=== PATIENT | female | born 1950 | race Caucasian/White ===

== ENCOUNTER 2018-12-16 04:55 | Inpatient (IN) ==
--- NOTE | 2018-10-31 16:09 | PAT Medication Instructions ---
Medication Instructions Date of Service October 31, 2018 Home Medications atorvastatin 40 mg PO QAM diphenhydramine HCl [Allergy] 25 mg PO DAILY PRN gabapentin 300 mg PO TID lisinopril 20 mg PO HS lisinopril-hydrochlorothiazide 1 tab PO QAM methocarbamol 500 mg PO BID PRN metoprolol succinate 100 mg PO QAM metoprolol succinate [Toprol XL] 50 mg PO HS omeprazole 20 mg PO QAM rivaroxaban [Xarelto] 20 mg PO PM [Vision Formula (X-Y-X-Zn-damon)] 1 cap PO DAILY ASK your prescriber and surgeon rivaroxaban [Xarelto] 20 mg PO PM *MUST BE HELD FOR AT LEAST 72 HOURS BEFORE SURGERY FOR SPINAL ANESTHESIA. DO NOT take the morning of surgery diphenhydramine HCl [Allergy] 25 mg PO DAILY PRN lisinopril-hydrochlorothiazide 1 tab PO QAM methocarbamol 500 mg PO BID PRN [Vision Formula (J-I-V-Zn-damon)] 1 cap PO DAILY Take morning of surgery With a small sip of water, OTHERWISE NOTHING TO EAT OR DRINK AFTER MIDNIGHT: atorvastatin 40 mg PO QAM gabapentin 300 mg PO TID metoprolol succinate 100 mg PO QAM omeprazole 20 mg PO QAM Take evening before surgery diphenhydramine HCl [Allergy] 25 mg PO DAILY PRN (if needed) gabapentin 300 mg PO TID lisinopril 20 mg PO HS methocarbamol 500 mg PO BID PRN (if needed) metoprolol succinate [Toprol XL] 50 mg PO HS Other Notes If you have any questions please call us at [phone] or [phone] or [phone] or [phone]
--- NOTE | 2018-11-03 10:24 | Anesthesiology Consultation ---
Date of Service November 03, 2018 Assessment & Plan (1) Encounter for pre-operative examination: CHECK PT/INR/PTT STAT AM DOS CHECK BSG AM DOS Chart Review Chart Review: Acceptable Risk for Surgery and Patient seen in Pre Admission Te sting Teaching & Discussion Instructed NPO after midnight before surgery, except medications with 15 cc of water. Medication instructions provided according to the PAT guidelines. Patient aware Xarelto must be held for a minimum of 72 hours prior to surgery for spinal anesthesia, and she will check with surgeon and prescriber for instructions. History Surgery Operation Date: 12/16/18 07:00 Proposed Procedures p Left Knee Arthroplasty Uni Compartment versus Total Knee Replacement - Chadd Manzo MD Height/Weight Height: 5 ft 3.75 in Weight: 101.1 kg Allergies Allergy/AdvReac Type Severity Reaction Status Date / Time cat dander Allergy Mild CONGESTION Verified 10/31/18 10:50 pollen extracts Allergy Mild WATERY EYES Verified 10/31/18 10:50 Medications Home Medications Medication Instructions Recorded Confirmed Last Taken atorvastatin 40 mg PO QAM 10/31/18 10/31/18 Unknown diphenhydramine HCl [Allergy] 25 mg PO DAILY PRN 10/31/18 10/31/18 Unknown gabapentin 300 mg PO TID 10/31/18 10/31/18 Unknown lisinopril 20 mg PO HS 10/31/18 10/31/18 Unknown lisinopril-hydrochlorothiazide 1 tab PO QAM 10/31/18 10/31/18 Unknown methocarbamol 500 mg PO BID PRN 10/31/18 10/31/18 Unknown metoprolol succinate 100 mg PO QAM 10/31/18 10/31/18 Unknown metoprolol succinate [Toprol XL] 50 mg PO HS 10/31/18 10/31/18 Unknown omeprazole 20 mg PO QAM 10/31/18 10/31/18 Unknown rivaroxaban [Xarelto] 20 mg PO PM 10/31/18 10/31/18 Unknown vitamins A,C,U-zwvu-foifrn 1 cap PO DAILY 10/31/18 10/31/18 Unknown [Vision Formula (T-I-I-Zn-damon)] Past Medical History Medical History Atrial fibrillation TAKES XARELTO Degenerative disc disease GERD (gastroesophageal reflux disease) Hyperlipidemia Hypertension Osteoarthritis Peripheral neuropathy Type 2 diabetes mellitus A1C 7.2% Past Family History Family History Mother Family history of diabetes mellitus Family hx of colon cancer Father Family hx of colon cancer Past Surgical History Surgical History History of adenoidectomy History of bilateral tubal ligation History of cataract surgery RT/LEFT History of colonoscopy History of discectomy LUMBAR (2 TOTAL BACK SURGERIES) History of esophagogastroduodenoscopy (EGD) History of open reduction and internal fixation (ORIF) procedure RT ANKLE History of tonsillectomy History of tooth extraction Past Anesthesia History No Hx of Anesthesia Complications and No Family Hx of Anesthesia Complications History of PONV No Motion Sickness Screening History of Motion Sickness: No Social History Smoking Status: Former smoker tobacco type: cigarettes Do You Dip or Chew Tobacco: No Smoking End Date: QUIT OVER 40 YEARS AGO Hx Alcohol Use: Yes Alcohol type: beer, wine and hard liquor alcohol intake frequency: a few times a month Hx Substance Use: No substance use type: does not use Exercise / Class Metabolic Activity II 4-5 Yardwork/Stairs/Walk up hill (denies CP or SOB with stairs) Review of Systems Pt denies any recent chest pain, shortness of breath, palpitations, cough, fever or URI. Physical Exam Vital Signs BP: 103/67 P: 64bpm SPO2: 95% RA T: 98.2 F R: 16 ENMT Mouth: + dental restorations (few crowns); no chipped teeth and no loose teeth Thyromental Distance: > or= 3.5 Finger Breadths (4) Mallampati Class: IV Neck + thick neck and + limited neck extension (mildly) Respiratory normal respiratory effort Auscultation: lungs clear to auscultation bilaterally Cardiovascular Rate/Rhythm: regular rate and regular rhythm Heart Sounds: no murmur Vessels: no carotid bruit Extremities: no edema Testing Electrocardiogram Date: 07/14/18 Findings: + NSR @ (77) Left axis deviation. Chest X-Ray Date: 07/14/18 Findings: + NAD Echocardiogram Date: 08/25/15 EF: 64% Examination is adequate to evaluate the referral indication. The LV wall thickness is borderline increased (concentric). Nondilated cardiac chambers. Mild mitral annular calcification. Mild MR. Mild TR. Estimated pulmonary artery systolic pressure is 16 mmHg. Laboratory Results 11/03/18 10:40 11/03/18 10:40 Blood Type A Positive 11/03/18 10:40 Antibody Screen NEGATIVE 11/03/18 10:40 PT 12.1 Seconds (9.0-12.0) H 11/03/18 10:40 INR 1.2 (0.9-1.1) H 11/03/18 10:40 APTT 33.0 Seconds (21.0-31.0) H 11/03/18 10:40
[2018-11-03 11:26] LABS: Basophils # (auto) 0.03 K/uL (0-0.2); Basophils % (auto) 0.4 %; Eosinophils # (auto) 0.12 K/uL (0-0.5); Eosinophils % (auto) 1.7 %; Hematocrit (blood only) 38.5 % (37-47); Immature Granulocytes # (auto) 0.01 K/uL (0.00-0.02); Immature Granulocytes % (auto) 0.1 %; Lymphocytes # (auto) 2.41 K/uL (1.2-3.4); Lymphocytes % (auto) 34.4 %; Mean Corpuscular Hgb Conc 33.8 g/dL (32-36); Mean Corpuscular Volume 91.7 fL (80-100); Mean Platelet Volume 9.5 fL (7.4-10.4); Monocytes # (auto) 0.77 K/uL (0.11-0.59); Neutrophils # (auto) 3.67 K/uL (1.4-6.5); Neutrophils % (auto) 52.4 %; Platelet Count 343 K/uL (130-400); RDW Coefficient of Variation 15.2 % (11.5-14.5); RDW Standard Deviation 51.1 fL (36.4-46.3); White Blood Count 7.01 K/uL (4.8-10.8)
[2018-11-03 11:36] LABS: BUN Creatinine Ratio 17.1 (10-20); Calcium 9.4 mg/dl (8.5-10.1); Creatinine Clr Calc Pharmacy 78.3 ml/min; Est GFR (African American) 90.7; Est GFR (Non-African American) 78.2; Potassium 4.1 mmol/L (3.5-5.1)
[2018-11-03 11:45] LABS: INR 1.2 (0.9-1.1); Partial Thromboplastin Ratio 1.2; Prothrombin Time 12.1 Seconds (9.0-12.0)
--- NOTE | 2018-12-12 07:28 | History and Physical Report ---
DATE OF ADMISSION: 12/16/2018 CHIEF COMPLAINT: Bilateral knee pain and discomfort, left side greater than right. HISTORY OF PRESENT ILLNESS: The patient is a 68-year-old female referred by my partner Dr. Gonzalez for treatment of her knees. She has got a fair long history of bilateral knee pain and discomfort, left side has been a bit worse than the right. It is localized mostly all of the medial side of her knee. She has been through extensive conservative treatment including medicines as well as injections. This has become less successful over time. She has some trips coming and she is concerned about her ability to walk enough. The more she walks, the more it hurts. She limps more as the day goes on. Has difficulty going up and down steps. She would like to proceed with surgical treatment. Of note, the patient recently had some back surgery done at [facility] little over 6 months ago. She has recovered from this. PAST MEDICAL HISTORY: Significant for 1. Atrial fibrillation, on Xarelto. 2. Diabetes with A1c of 7.3. 3. Arthritis. 4. Back pain. 5. Obesity with BMI of 39. PAST SURGICAL HISTORY: 1. Back surgery x2, one in 2009 and one in March 2018 at [facility]. 2. Ankle surgery in 1987. 3. Tubal ligation. ALLERGIES: CAT, DEN AND POLLEN. CURRENT MEDICINES: 1. Xarelto 20 mg a day for atrial fibrillation. 2. Lisinopril/hydrochlorothiazide - once a day. 3. Metoprolol ER 100 mg. 4. Atorvastatin 80 mg. 5. Hydrocodone for back and leg pain. 6. Gabapentin 300 mg 3 times a day. 7. Sertraline 25 mg. 8. Trazodone 25 mg. 9. Loratadine 10 mg a day. SOCIAL HISTORY: A 68-year-old female. She is . Only drinks per week. Does not smoke. FAMILY HISTORY: Significant for heart disease and colon cancer. REVIEW OF SYSTEMS: Significant for some intermittent atrial fibrillation and on Xarelto. Denies any chest pain or shortness of breath. No history of DVT. No known bleeding problems. PHYSICAL EXAMINATION: GENERAL: Reveals a pleasant middle-aged female, looks to be in reasonably good health. HEENT: Benign. NECK: Supple. No lymphadenopathy. LUNGS: Clear to auscultation. HEART: Has a regular rate and rhythm. ABDOMEN: Soft, nontender, nondistended. EXTREMITIES: Grossly neurovascularly intact except as follows: Examination of the knees reveal patient ambulates with little bit of a waddling gait. She has got varus alignment to both of her knees. Examination of left knee reveals some tenderness along the medial joint line. Small knee effusion. Range of motion is near full extension to 125 degrees of flexion. No instability. No pain with hip motion. She is neurologically intact. Examination of the right knee reveals slight varus alignment. Tender over the medial joint line. Small knee effusion. Range of motion 0-125. No instability. She is neurovascularly intact. X-RAYS: X-rays of the left knee reviewed. Shows advanced medial compartment arthritis. She has got near complete loss of joint space in the 45-degree flexion films. We did get a stress film in the medial side opens up, the lateral space is well preserved. ASSESSMENT: A 68-year-old female with a history of increasing bilateral knee pain, discomfort, primarily is isolated at the medial compartment of the knee unresponsive to conservative treatment. Left knee is worse than the right. She would like to proceed with definitive treatment. We talked about partial versus full knee replacement. After extensive discussion, we are going to take her to the operating room and do a left partial knee replacement. If we get in there and disease is too bad, we will do a full knee replacement. The risks and benefits of this procedure was explained to the patient including but not limited to DVT, PE, , infection, neurological injury, vascular injury, bleeding problem, pain, limited range of motion, stiffness, failure to relieve symptoms, incomplete relief of symptoms, need for further surgery in the future, fracture, leg length inequality, nerve palsy, dislocation, etc. The patient understands and desires to proceed. Informed consent was obtained. She will need to stop her Xarelto preop. We will start her 24 hours postoperative prophylactic dose. She does not have chronic AFib, which is closing and out and her EKG preoperatively was normal sinus rhythm. We did talk about holding her lisinopril on the day of surgery and taking the metoprolol. BLAINE
[2018-12-16 05:42] LABS: Partial Thromboplastin Time 25.9 Seconds (21.0-31.0); Prothrombin Time 10.3 Seconds (9.0-12.0)
[2018-12-16] MEDS ORDERED: LR 500ML BOLUS, THEN 15ML/HR IV SCH (06:00)
[2018-12-16] MEDS ORDERED: CEFAZOLIN 2000MG 2,000 MG/15 ML SYR IV SCH (06:00)
[2018-12-16] MEDS ORDERED: BUPIVACAINE LIPOSOME/PF 266 MG, BUPIVACAINE/EPINEPHRINE 50 ML, SODIUM CHLORIDE 0.9% 30 ... INFIL SCH (06:00)
[2018-12-16] MEDS ORDERED: METOCLOPRAMIDE HCL 10 MG TABLET PO SCH (06:00)
[2018-12-16] MEDS ORDERED: GABAPENTIN 300 MG PO SCH (06:00)
[2018-12-16] MEDS ORDERED: LR 60ML/HR IV SCH (06:00)
[2018-12-16] MEDS ORDERED: ACETAMINOPHEN 500 MG TAB PO SCH (06:00)
[2018-12-16] MEDS ORDERED: FAMOTIDINE 20 MG TAB PO SCH (06:00)
[2018-12-16] MEDS ORDERED: MIDAZOLAM HCL 1 MG/ML 2ML VIAL ONE (06:22)
[2018-12-16] MEDS ORDERED: fentaNYL citrate 100 MCG/2 ML VIAL ONE (06:23)
[2018-12-16] MEDS ORDERED: ROPIVACAINE 0.5% 5 MG/ML 30 ML VIAL ONE (06:25)
[2018-12-16] MEDS ORDERED: BUPIVACAINE 0.5 % 5 MG/1 ML PF 10ML VIAL ONE (06:25)
[2018-12-16] MEDS ORDERED: LIDOCAINE HCL 2% 2 ML VIAL/AMP(20MG/ML) INFIL ONE ×2 (06:30→07:10)
[2018-12-16] MEDS ORDERED: PROPOFOL IV EMULSION 10 MG/ML 20 ML VIAL IV ONE (06:30)
[2018-12-16] MEDS ORDERED: ONDANSETRON INJ 2 MG/ML 2 ML VIAL ONE (06:30)
[2018-12-16] MEDS ORDERED: SODIUM CHLORIDE 0.9% PF 50 ML VIAL ONE (06:35)
[2018-12-16] MEDS ORDERED: BACITRACIN INJ 50,000 UNIT VIAL ONE (06:35)
[2018-12-16] MEDS ORDERED: BUPIVACAINE LIPOSOME 1.3% 266 MG/20 ML VIAL ONE (06:35)
[2018-12-16] MEDS ORDERED: BUPIVACAINE 0.25% 30 ML VIAL ONE (06:35)
[2018-12-16] MEDS ORDERED: EPINEPHrine INJ 1 MG/ML AMP ONE (06:36)
--- NOTE | 2018-12-16 06:47 | History & Physical Bridge Note ---
Date of Service December 16, 2018 History & Physical Bridge Note I have examined the patient, reviewed the History & Physical and in the interval since the performance of the History & Physical I have noted the following changes of clinical significance: no changes noted
[2018-12-16] MEDS ORDERED: HYDROmorphone INJ 1 MG/ML SYRINGE IV PRN (07:00)
[2018-12-16] MEDS ORDERED: ONDANSETRON INJ 2 MG/ML 2 ML VIAL IV PRN ×2 (07:00→09:37)
[2018-12-16] MEDS ORDERED: KETOROLAC 30 MG/ML VIAL IV PRN (07:00)
[2018-12-16] MEDS ORDERED: PHENYLEPHRINE 100MCG/ML 5ML SYR IV PRN (07:00)
[2018-12-16] MEDS ORDERED: ATROPINE SULFATE 0.1 MG/ML 10ML SYR IV PRN (07:00)
[2018-12-16] MEDS ORDERED: ePHEDrine sulfate 50 MG/ML AMP IV PRN (07:00)
[2018-12-16] MEDS ORDERED: PHENYLEPHRINE HCL 10 MG/ML VIAL ONE (07:44)
--- NOTE | 2018-12-16 08:46 | Post Operative Brief Note ---
Immediate Post Op Note v1 Date of Surgery December 16, 2018 Pre & Post Diagnosis Operation Date: 12/16/18 07:00 Pre-Op Diagnosis: Left Knee Advanced Medial Compartment Arthritis Post-Op Diagnosis: Left Knee Advanced Medial Compartment Arthritis Procedure Operation Date: 12/16/18 07:00 Actual Procedures p Left Knee Arthroplasty Unicompartmental(Left) - Chadd Manzo MD Surgeon Chadd Manzo MD Engineering Technician Marsha, PAC Estimated Blood Loss 25 Findings Consistent with Post-Op Diagnosis Fluids 1000 cc Specimens Left Knee Drains Oakley Catheter (A 16 Upper Sorbian oakley catheter was inserted by SCHUYLER Gilmore, without difficulty, clear yellow urine obtained, output to be monitored by Mitzi burk.) Anesthesia Type Spinal MAC Complications none Disposition Accompanied Patient To Recovery: No Disposition: Recovery Room
--- NOTE | 2018-12-16 09:26 | XRay Report ---
XR knee LT 2V routine CLINICAL HISTORY: Surgical Post Op joint replacement COMPARISON: None. DISCUSSION: Anatomic alignment post medial joint compartment arthroplasty. Alignment in contact with underlying bone is good. Expected soft tissue postoperative change. IMPRESSION: Anatomic alignment post medial joint compartment arthroplasty. The above report was generated using voice recognition software. It may contain grammatical, syntax or spelling errors. Electronically signed by: Lorne Worley M.D. 12/16/2018 9:24 AM
--- NOTE | 2018-12-16 09:34 | Anesthesiology Progress Note ---
Date of Service December 16, 2018 Anesthesia Post Procedure Vital Signs Vital Signs: Temp Pulse Pulse Resp BP Pulse Ox 12/16/18 09:20 36.4 C L 72 14 112/79 95 12/16/18 09:10 71 13 113/82 96 12/16/18 09:00 75 19 121/81 96 12/16/18 08:51 36.2 C L 59 L 21 115/70 94 12/16/18 05:41 36.5 C 72 20 146/76 H 94 Transfer of Care Handoff Completed per policy Notes Mental Status: alert / awake / arousable Patient Amnestic to Procedure: Yes Nausea / Vomiting: adequately controlled Pain: adequately controlled Airway Patency, RR, SpO2: stable & adequate BP & HR: stable & adequate Hydration State: stable & adequate Neuraxial Anesthesia: was administered and sensory block is resolving Anesthetic Complications: no major complications apparent
[2018-12-16] MEDS ORDERED: MAGNESIUM HYDROXIDE SUSP 30 ML UDC PO PRN (09:37)
[2018-12-16] MEDS ORDERED: GLUCOSE 10 TABS/TUBE PO PRN (09:37)
[2018-12-16] MEDS ORDERED: MULTIVITAMIN TAB PO SCH (09:37)
[2018-12-16] MEDS ORDERED: BISACODYL 10 MG SUPP PR PRN (09:37)
[2018-12-16] MEDS ORDERED: METOCLOPRAMIDE HCL INJ 5 MG/ML 2 ML VIAL IV PRN (09:37)
[2018-12-16] MEDS ORDERED: NALOXONE HCL 0.4 MG/1 ML VIAL/CARP IV PRN (09:37)
[2018-12-16] MEDS ORDERED: GLUCAGON FOR INJ 1 MG VIAL SQ PRN (09:37)
[2018-12-16] MEDS ORDERED: HYDROmorphone INJ 0.5 MG/0.5 ML SYR IV PRN (09:37)
[2018-12-16] MEDS ORDERED: GLUCOSE 40% GEL 15 GM TUBE PO PRN (09:37)
[2018-12-16] MEDS ORDERED: CARBOHYDRATES FOR HYPOGLYCEMIA PO PRN (09:37)
[2018-12-16] MEDS ORDERED: METHOCARBAMOL 500 MG TABLET PO PRN (09:37)
[2018-12-16] MEDS ORDERED: ALUMINUM/MAGNESIUM SUSP 30 ML UDC PO PRN (09:37)
[2018-12-16] MEDS ORDERED: DEXTROSE 50% 50 ML SYRINGE IV PRN (09:37)
[2018-12-16] MEDS ORDERED: PHARMACY GLYCEMIC MGMT CONSULT STA (09:37)
[2018-12-16] MEDS: KETOROLAC TROMETHAMINE 15 MG/ML VIAL IV SCH ×3 (10:10→22:14)
[2018-12-16] MEDS: TRAMADOL HCL 50 MG TABLET PO PRN (10:11)
[2018-12-16] MEDS: SODIUM CHLORIDE 0.9% 1000ML 1,000 ML IV SCH ×2 (10:12→20:28)
[2018-12-16] MEDS ORDERED: PHARMACY GLYCEMIC MGMT CONSULT PRN (10:25)
[2018-12-16] MEDS: METOPROLOL SUCC 50MG EXT REL TAB PO SCH (10:28)
[2018-12-16] MEDS: LISINOPRIL/HCTZ 20/12.5MG 1 TAB TAB PO SCH (10:44)
--- NOTE | 2018-12-16 10:50 | Operative Report ---
DATE OF OPERATION: 12/16/2018 SURGEON: Chadd Manzo MD CLINICAL NEUROPSYCHOLOGIST: SCHUYLER Erazo PREOPERATIVE DIAGNOSIS: Left knee degenerative joint disease. POSTOPERATIVE DIAGNOSIS: Same. PROCEDURE PERFORMED: Left Biomet [place]inas mobile bearing partial knee replacement. COMPLICATIONS: None. ESTIMATED BLOOD LOSS: 25 mL. FLUID REPLACEMENT: 1000 mL crystalloid fluid replacement. TOURNIQUET TIME: 67 minutes at 300 mmHg. ANESTHESIA: Spinal with adductor canal block. DRAINS: None. SPECIMENS: Left knee sent for pathology. OPERATIVE INDICATIONS: The patient is a 68-year-old female who is referred to me by my partner, Dr. Gonzalez, for surgical treatment of her left knee. She had a fairly long history of left knee pain and discomfort that has become less responsive to conservative treatment overtime. X-rays revealed medial compartment DJD. Her symptoms are localized in the medial side of the knee. The patient has elected to proceed with operative treatment. OPERATIVE FINDINGS: Operative findings revealed grade 4 [id number] disease of the medial femoral condyle and medial tibial plateau. Her ACL was intact. Her lateral and patellofemoral compartments were quite well preserved. OPERATIVE IMPLANTS: Operative implants consisted of: 1. Biomet [place] size medium femoral component. 2. Biomet [place] left medial size AA tibial tray. 3. A 5 mm mobile bearing insert. DESCRIPTION OF PROCEDURE: The patient was taken to the operating room, identified, and placed on the operative table in supine position. All contact areas were appropriately padded. IV antibiotics were provided by anesthesia team. A spinal anesthetic and adductor canal block had been provided in the holding area. Hutchison catheter was placed in sterile fashion. Left thigh tourniquet was then placed, and left lower extremity was then prepped and draped in usual sterile fashion. Left leg was elevated and exsanguinated with an Esmarch, and tourniquet was placed at 300 mmHg. An anterior approach to the left knee was then performed through a longitudinal incision beginning at the superior pole of the patella and extending just medial to the tibial tubercle. Sharp dissection was carried out through the subcutaneous tissues down to the level of the extensor mechanism. Medial parapatellar arthrotomy incision was made. Some slight subperiosteal dissection was carried out medially. Great care was taken throughout the procedure to protect the MCL at all times. An osteotome was used to remove some intercondylar notch osteophytes. I then trialed the knee and sized it to a size medium. The external tibial alignment jig was then placed in the anterior face of the tibia and adjusted to the medium spoon with a 4G and attached with a 4G clamp. The tibial guide was pinned in position. The proximal tibial cut was made. Attention was then drawn to the femur. The distal femur was entered with a sharp drill bit. Intramedullary leeann was placed. The medium femoral component guide was then placed and attached to the intramedullary leeann. The holes were drilled for the femoral component. Posterior cutting guide was placed, and a posterior cut was made. The 0 spigot was used, and the distal femur was milled. I then trialed the knee, and the 4 feeler gauge fit well in flexion and the 2 in extension. I then reamed the distal femur with the 2 spigot. We then trialed the knee again, and the 4 feeler gauge fit appropriately in both flexion and extension. Just a little bit loose in extension. We then prepared the femoral surface using the posterior osteophyte cutting guide. The posterior osteophytes were removed. The reamer was used to mill the anterior femur. The tibial tray was pinned in place. The toothbrush blade saw was used to create the keel for the tibial tray. I did remove the medial meniscus. I then irrigated extensively. We then placed the trial implants. At this point, the 5 implant fit most appropriately in flexion and extension. We elected to place these implants. All trial implants were removed. A cement drill was used to create some defects in the distal femur for the cement interdigitation. A single batch of Palacos G cement was mixed. A left medial size AA tibial tray was cemented in position. A size medium femoral component was cemented in position. A 5 feeler gauge was then placed. All extraneous cement was removed. The knee was brought out into 30 degrees short of full extension until cement hardened. A final cement check was then performed. The pericapsular tissues were injected with 100 mL of a combination of 20 mL of Exparel, 30 mL of normal saline, 50 mL of 0.25% Marcaine with epinephrine. The tourniquet was then let down for a tourniquet time of 67 minutes. Hemostasis was assured with use of electrocautery. The extensor mechanism was then closed with #1 Vicryl suture in a [id number] fashion. Extensor mechanism was checked and found to be intact. The subcutaneous tissues were then closed with 2 Dexon suture in a buried interrupted fashion. Skin was closed with skin j luis. Leg was then cleaned, dried, and a sterile dressing of Xeroform, 4 x 4, sterile cast padding, and Sriram bandage were applied. The patient was then transferred to the recovery room in stable condition. The patient tolerated the procedure well with no complications. All needle and sponge counts were correct at the end of the operation. I attest to the content of the Intraoperative Record and any orders documented therein. Any exception s are noted below.
[2018-12-16] MEDS: PANTOprazole 40 MG TAB PO SCH (11:04)
[2018-12-16] MEDS: DOCUSATE SODIUM 100 MG CAP PO SCH ×2 (11:04→20:27)
[2018-12-16] MEDS: CEROVITE ADV FORMULA TAB PO SCH (11:04)
[2018-12-16] MEDS: ATORVASTATIN 40 MG TAB PO SCH (11:05)
[2018-12-16 11:13] LABS: Alanine Aminotransferase 19 U/L (12-78); Albumin Level 3.1 gm/dl (3.4-5.0); Alkaline Phosphatase 74 U/L (45-117); Aspartate Aminotransferase 10 U/L (15-37); Bilirubin Direct < 0.1 mg/dl (0-0.2); Bilirubin,Total 0.3 mg/dl (0.2-1); Total Protein 6.4 gm/dl (6.4-8.2)
[2018-12-16] MEDS: INSULIN ASPART 100 UNITS/ML 3 ML PEN SC SCH ×3 (12:16→20:36)
--- NOTE | 2018-12-16 13:48 | Progress Note ---
DATE: 12/16/2018 SUBJECTIVE: A 68-year-old white female postop from a left partial knee replacement. She is doing well. Not having any pain. No chest pain or shortness of breath. Not feeling dizzy or lightheaded. OBJECTIVE: VITAL SIGNS: Temperature 36.5. Vital signs stable. GENERAL: Physical examination shows a pleasant elderly female. She is sitting up in bed and talking to her . Looks comfortable. LUNGS: Clear to auscultation. HEART: Has a regular rate and rhythm. ABDOMEN: Soft, nontender, nondistended. EXTREMITIES: Grossly neurovascularly intact except as follows: Examination of the left lower extremity reveals the leg to be well aligned. Dressing is clean, dry and intact. She can dorsiflex and plantarflex her foot appropriately. She is neurologically intact. X-RAYS: X-rays of the left knee from recovery room were reviewed. She has a left partial knee replacement. Components looked to be in good position. No signs of problems. ASSESSMENT: A 68-year-old white female postop from a left partial knee replacement. She is doing well. Pain is controlled. She is neurologically intact. PLAN: 1. DVT prophylaxis including thigh-high TEDs, SCDs, and will put her back on her anticoagulation beginning 24 hours postop at a slightly lower/prophylactic dose. 2. PT/OT. Weight bear as tolerated. Left total knee protocol. 3. Pain control, doing well with current pain regimen. 4. IV antibiotics x24 hours. 5. Disposition: She is planning to be discharged to home likely with some home health once adequately recovered.
[2018-12-16] MEDS: ACETAMINOPHEN 500 MG TAB PO SCH ×2 (13:50→22:07)
[2018-12-16] MEDS: GABAPENTIN 300 MG CAP PO SCH ×2 (13:50→20:27)
--- NOTE | 2018-12-16 14:29 | Pharmacy Report ---
Glycemic Control Consultation - Date of Service December 16, 2018 - Scope Scope: Glycemic Pharmacist consulted by Dr Manzo on 12/16/18 for glycemic control and to write orders per [facility] inpatient glycemic control protocol - Objective Weight: 100.329 kg Accuchecks BSG (last 24hrs): 12/16/18 12/16/18 12/16/18 05:19 09:06 10:26 POC Glucose 118 H 138 H 109 H - Recent Pertinent Medications Outpatient Anti-diabetic Regimen: * Nil * A1c = 7.3 % 01/31/18 - Assessment & Plan Assessment & Plan: ASSESSMENT: * Ms. Parada is a 68yo F unknown to the pharmacy glycemic service. I am unsure of her current glycemic status as her most recent A1C was 7.3% back in January of 2018. By her own admission she manages her diabetes with lifestyle modifications and dietary restrictions. * She is POD: 0 from a TKA. Minimal other RF for insulin resistance at this point in time. She reports her appetite as being less than normal. PLAN FOR INPATIENT GLYCEMIC CONTROL: * Basal insulin * none indicated at this point in time * Bolus insulin * NovoLog per scale ACHS or Q6hrs while NPO * Goal Range: Low 110 mg/dL - High 140 mg/dL * Correction Factor: 25 mg/dL/unit * Nutritional / Prandial insulin per carb ratio of 1 unit per 8 grams CHO consumed * Please note that the plan above was derived based on current level of insulin resistance and hospital stress. These recommendations are appropriate for inpatient admission only. Plan of care upon discharge will need to be reassessed to avoid potential outpatient hypo/hyperglycemia. Thank you.
[2018-12-16] MEDS: CEFAZOLIN 2000MG 2,000 MG/15 ML SYR IV SCH ×2 (14:37→22:19)
[2018-12-16] MEDS: ASCORBIC ACID 500 MG TAB PO SCH (17:11)
[2018-12-16] MEDS ORDERED: METOPROLOL SUCC 50MG EXT REL TAB PO SCH (21:00)
[2018-12-16] MEDS ORDERED: SENNA 8.6 MG TAB PO SCH (21:00)
[2018-12-16] MEDS ORDERED: LISINOPRIL 20 MG TAB PO SCH (21:00)
[2018-12-17] MEDS: KETOROLAC TROMETHAMINE 15 MG/ML VIAL IV SCH (03:27)
[2018-12-17] MEDS: ACETAMINOPHEN 500 MG TAB PO SCH ×2 (05:33→13:43)
[2018-12-17 06:40] LABS: Hematocrit (blood only) 34.7 % (37-47); Hemoglobin 11.3 g/dL (12.0-16.0); Mean Corpuscular Hgb Conc 32.6 g/dL (32-36); Mean Corpuscular Volume 90.8 fL (80-100); Mean Platelet Volume 9.3 fL (7.4-10.4); Platelet Count 247 K/uL (130-400); RDW Coefficient of Variation 14.2 % (11.5-14.5); RDW Standard Deviation 47.4 fL (36.4-46.3); Red Blood Count 3.82 M/uL (4.2-5.4); White Blood Count 8.16 K/uL (4.8-10.8)
[2018-12-17 07:02] LABS: Estimated Average Glucose 154 mg/dl
[2018-12-17 07:19] LABS: BUN Creatinine Ratio 19.7 (10-20); Calcium 8.4 mg/dl (8.5-10.1); Creatinine Clr Calc Pharmacy 69.6 ml/min; Est GFR (African American) 80.5; Est GFR (Non-African American) 69.4
[2018-12-17] MEDS: TRAMADOL HCL 50 MG TABLET PO PRN ×2 (07:55→11:58)
[2018-12-17] MEDS: DOCUSATE SODIUM 100 MG CAP PO SCH (07:56)
[2018-12-17] MEDS: METOPROLOL SUCC 50MG EXT REL TAB PO SCH (07:56)
[2018-12-17] MEDS: CEROVITE ADV FORMULA TAB PO SCH (07:56)
[2018-12-17] MEDS: GABAPENTIN 300 MG CAP PO SCH ×2 (07:56→13:44)
[2018-12-17] MEDS: PANTOprazole 40 MG TAB PO SCH (07:56)
[2018-12-17] MEDS: LISINOPRIL/HCTZ 20/12.5MG 1 TAB TAB PO SCH (07:57)
[2018-12-17] MEDS: ASCORBIC ACID 500 MG TAB PO SCH (07:57)
[2018-12-17] MEDS: ATORVASTATIN 40 MG TAB PO SCH (07:58)
[2018-12-17] MEDS: INSULIN ASPART 100 UNITS/ML 3 ML PEN SC SCH ×2 (08:47→12:23)
--- NOTE | 2018-12-17 08:48 | Anesthesiology Progress Note ---
Date of Service December 17, 2018 Anesthesia Post Procedure Vital Signs Vital Signs: Temp Pulse Pulse Resp BP Pulse Ox 12/17/18 07:38 36.6 C 66 20 120/76 93 12/17/18 03:05 36.4 C L 62 16 114/74 97 12/16/18 23:03 36.6 C 64 16 111/76 91 12/16/18 20:25 60 124/84 12/16/18 18:06 36.4 C L 60 18 112/76 94 12/16/18 12:37 36.5 C 59 L 18 105/70 95 12/16/18 11:41 64 16 102/68 98 12/16/18 10:43 67 18 124/81 97 12/16/18 09:58 36.5 C 18 121/77 95 12/16/18 09:37 36.5 C 69 18 127/79 96 12/16/18 09:20 36.4 C L 72 14 112/79 95 12/16/18 09:10 71 13 113/82 96 12/16/18 09:00 75 19 121/81 96 12/16/18 08:51 36.2 C L 59 L 21 115/70 94 Pain Intensity Left Knee: Pain Intensity: 3 Notes Mental Status: alert / awake / arousable and participated in evaluation Patient Amnestic to Procedure: Yes Nausea / Vomiting: adequately controlled Pain: adequately controlled Airway Patency, RR, SpO2: stable & adequate BP & HR: stable & adequate Hydration State: stable & adequate Neuraxial Anesthesia: was administered and sensory block resolved Anesthetic Complications: no major complications apparent and Pt Satisfied with anesthetic care
[2018-12-17] MEDS ORDERED: RIVAROXABAN 10 MG TABLET PO SCH ×2 (09:00→21:00)
--- NOTE | 2018-12-17 14:58 | Pharmacy Report ---
Pharmacy Glycemic Sign Off Nt - Date of Service December 17, 2018 - Assessment & Plan ASSESSMENT: * Pharmacy was consulted by Dr Manzo on 12/16/18 for glycemic control and to write orders per [facility] inpatient glycemic control protocol. * Major changes made by pharmacy to antidiabetic regimen include: * N/A - pt not on antidiabetic medications as an outpatient. * Started Bolus insulin with Novolog per CF/CR post-operative * Patient has been receiving/requiring 0 units of insulin per day for adequate glycemic control * Pt refusing all insulin but BSGs all in goal range. * Do not anticipate further changes in patient status that would quickly deteriorate glycemic control (i.e. patient to be NPO for upcoming procedure, steroids tapering, starting tube feedings, etc). PLAN FOR INPATIENT GLYCEMIC CONTROL: * No basal insulin needed * Continue NovoLog per scale ACHS/Q6hrs while NPO * Goal range = 100 140 mg/dl * CF = 40 mg/dl/unit * CR = 1 unit for ever -- g CHO consumed * Pharmacy is signing off of glycemic consult and will no longer be making adjustments to inpatient regimen. Please feel free to re-consult if needed. Thank you.
--- NOTE | 2018-12-17 15:10 | Progress Note ---
DATE: 12/17/2018 SUBJECTIVE: A 68-year-old white female postop day 1 from left knee replacement. She is doing well. Therapy is going well. Pain is controlled. No chest pain or shortness of breath. Not feeling dizzy or lightheaded. OBJECTIVE: VITAL SIGNS: Temperature 37.2. Vital signs stable. GENERAL: Physical examination shows a pleasant elderly female. She is sitting up in bed, looks pretty comfortable. EXTREMITIES: Examination of the left leg reveals the dressing to be clean, dry and intact. She can dorsiflex and plantarflex her foot appropriately. She has a good straight leg raise. LABORATORY DATA: Hemoglobin is 11.3. Hematocrit 34.7. Electrolytes are stable. ASSESSMENT: A 68-year-old white female postop day 1 from a left partial knee replacement, doing well. Pain is controlled. Therapy went well. She is neurologically intact. PLAN: 1. DVT prophylaxis including thigh-high TEDs, SCDs, and back on her Xarelto. She is on a prophylactic dose today and a therapeutic dose tomorrow. 2. PT/OT. Weight bear as tolerated. Left total knee protocol. 3. Pain control, doing well with current pain regimen. 4. Disposition: Plan to discharge to home with some home health later today.
--- NOTE | 2018-12-20 00:21 | Discharge Summary ---
ADMITTING PHYSICIAN AND SURGEON: Chadd Manzo MD ADMITTING DIAGNOSIS: Left knee degenerative joint disease. SURGERY PERFORMED: Left partial knee replacement. SECONDARY DIAGNOSES: Atrial fibrillation, diabetes, arthritis, back pain and obesity. CONSULTS: None obtained. HISTORY AND PHYSICAL EXAMINATION: Well documented in the patient's chart. HOSPITAL COURSE: The patient was admitted on 12/16/2018 and underwent a partial knee replacement. She tolerated the procedure well. There were no complications. She was transferred to the PACU postoperatively and later to the orthopedic for further care. She was given Ancef for antibiotic prophylaxis, KEVIN stockings, sequential compression devices and Xarelto for deep venous thrombosis prophylaxis. Hemoglobin, hematocrit and vital signs monitored during her hospital stay and remained stable, did not require blood transfusions. There were no complications. By postoperative day 1, she was tolerating a diabetic diet. Pain was controlled with oral pain medicine. She was participating in physical therapy. On postoperative day 1, she was discharged home and set up with home health services. She was given printed discharge instructions including new prescriptions for extra strength Tylenol and tramadol, continue her home medications, continue physical therapy, weightbearing as tolerated, KEVIN stockings and follow up approximately 2 weeks postoperative or sooner if any problems or concerns.
== END 2018-12-17 16:30 | disposition home health service (06) | DRG 470 ==
LOC: ASU 04:55 → 3E 08:51

== ENCOUNTER 2019-04-28 06:13 | Inpatient (IN) ==
--- NOTE | 2019-04-15 12:37 | Anesthesiology Consultation ---
Date of Service April 15, 2019 History Surgery Operation Date: 04/28/19 10:40 Proposed Procedures p Right Knee Arthroplasty Unicompartment Versus - Chadd Manzo MD s Total Knee Replacement - Chadd Manzo MD Height/Weight Height: 5 ft 3 in Weight: 92.986 kg Allergies Allergy/AdvReac Type Severity Reaction Status Date / Time cat dander Allergy Mild CONGESTION Verified 04/14/19 10:53 pollen extracts Allergy Mild WATERY EYES Verified 04/14/19 10:53 No Known Drug Allergies Allergy Verified 04/14/19 10:53 Medications Home Medications Medication Instructions Recorded Confirmed Last Taken atorvastatin 40 mg tablet 40 mg PO QAM #90 tab 02/06/19 04/14/19 Unknown blood sugar diagnostic strips #100 ea 02/06/19 03/02/19 Unknown lancets 33 gauge #100 ea 02/06/19 03/02/19 Unknown lisinopril 20 mg tablet 20 mg PO HS #90 tab 02/06/19 04/14/19 Unknown lisinopril 20 1 tab PO QAM #90 tab 02/06/19 04/14/19 Unknown mg-hydrochlorothiazide 12.5 mg tablet loratadine 10 mg tablet 10 mg PO DAILY #90 tab 02/06/19 04/14/19 Unknown metoprolol succinate ER 100 mg 100 mg PO QAM #90 tab 02/06/19 04/14/19 Unknown tablet,extended release 24 hr metoprolol succinate ER 50 mg 50 mg PO HS #90 tab 02/06/19 04/14/19 Unknown tablet,extended release 24 hr omeprazole 20 mg tablet,delayed 20 mg PO QAM PRN #90 tab 02/06/19 04/14/19 Unknown release rivaroxaban 20 mg tablet 20 mg PO PM #90 tab 02/06/19 04/14/19 Unknown gabapentin 300 mg capsule 300 mg PO TID #270 cap 02/25/19 04/14/19 Unknown hydrocodone 5 mg-acetaminophen 325 1 tab PO Q6H PRN #120 tab 03/17/19 04/14/19 Unknown mg tablet methocarbamol 500 mg tablet 500 mg PO TID PRN #270 tab 04/03/19 04/14/19 Unknown calcium carbonate-vitamin D3 1 cap PO QAM 04/14/19 04/14/19 Unknown [Calcium 600 + D(3)] Past Medical History Medical History Seborrheic dermatitis (Chronic) Lumbar disc disorder with myelopathy (Chronic) Dyslipidemia (Chronic) Chronic lumbar pain (Chronic) Chronic kidney disease, stage III (moderate) (Chronic) Cervicalgia (Chronic) Anxiety (Chronic) Atrial fibrillation TAKES XARELTO Degenerative disc disease GERD (gastroesophageal reflux disease) Hyperlipidemia Hypertension Osteoarthritis Peripheral neuropathy Type 2 diabetes mellitus A1C 7.2% "DIET CONTROLLED" Past Family History Family History Mother Family history of diabetes mellitus Family hx of colon cancer Father Family hx of colon cancer Past Surgical History Surgical History History of adenoidectomy History of bilateral tubal ligation History of cataract surgery RT/LEFT History of colonoscopy History of discectomy LUMBAR (2 TOTAL BACK SURGERIES) History of esophagogastroduodenoscopy (EGD) History of open reduction and internal fixation (ORIF) procedure RT ANKLE History of tonsillectomy History of tooth extraction History of total knee replacement LEFT Social History Smoking Status: Former smoker tobacco type: cigarettes Do You Dip or Chew Tobacco: No Smoking End Date: Hx Alcohol Use: Yes Alcohol type: wine alcohol intake frequency: a few times a month Hx Substance Use: No substance use type: does not use Testing Laboratory Results Laboratory Tests 03/19/19 04/06/19 04/06/19 07:58 13:12 13:12 WBC 8.31 Hgb 13.5 Hct 40.2 Plt Count 342 PT INR APTT Sodium 139 Potassium 3.9 Chloride 104 Carbon Dioxide 27 BUN 18 Creatinine 0.77 Glucose 108 H Hemoglobin A1c 7.5 H 04/06/19 13:12 WBC Hgb Hct Plt Count PT 10.7 INR 1.0 APTT 29.4 Sodium Potassium Chloride Carbon Dioxide BUN Creatinine Glucose Hemoglobin A1c Electrocardiogram Date: 07/14/18 Findings: + NSR @
--- NOTE | 2019-04-24 08:15 | History and Physical Report ---
DATE OF ADMISSION: 04/28/2019 CHIEF COMPLAINT: Persistent right knee pain and discomfort. HISTORY OF PRESENT ILLNESS: The patient is a 68-year-old female who is now about 4 months out from a left partial knee replacement. She really briefs that operation pretty well. Pain is all gone in that knee, but continues to be bothered by persistent medial pain and discomfort in her right knee. The more she walks, the more it hurts. She limps more as the day goes on. She has nighttime pain. Very happy with her left knee and would like to have her right knee fixed. PAST MEDICAL HISTORY: Includes: 1. Atrial fibrillation, on Xarelto. 2. Hypertension. 3. Elevated cholesterol. 4. Diabetes with an A1c of 7.5. 5. Gastroesophageal reflux disease. 6. Obesity with a BMI of 36. PAST SURGICAL HISTORY: Includes: 1. Back surgery x2, one in 2009 and one in 2017 done at [facility]. 2. Ankle surgery in 1987. 3. Tubal ligation. 4. Left partial knee replacement done on 12/16/2018. ALLERGIES: CAT DANDER, POLLEN, MOLD. CURRENT MEDICINES: Include: 1. Metoprolol ER 100 mg a day. 2. Lisinopril/hydrochlorothiazide once a day. 3. Xarelto 20 mg. 4. Atorvastatin 80 mg. 5. Hydrocodone for back pain. 6. Gabapentin 300 mg 3 times a day. 7. Sertraline 25 mg. 8. Trazodone. 9. Loratadine 10 mg a day. SOCIAL HISTORY: A 68-year-old female. She is . One drink per week. Does not smoke. FAMILY HISTORY: Significant for heart disease and colon cancer. REVIEW OF SYSTEMS: Significant for atrial fibrillation. Denies any chest pain or shortness of breath. No history of DVT or PE. No known bleeding problems. PHYSICAL EXAMINATION: GENERAL: Reveals a healthy, pleasant 68-year-old female who looks to be in pretty good health. HEENT: Benign. NECK: Supple, no lymphadenopathy. LUNGS: Clear to auscultation. HEART: Has a regular rate and rhythm. ABDOMEN: Soft, nontender, nondistended. EXTREMITIES: Grossly neurovascularly intact except as follows: Examination of the right knee reveals the patient who walks independently. She has got slight varus alignment to her knee. She is tender over the medial joint line. Small knee effusion. Range of motion 0-125. No instability. No pain with hip motion. Examination of the left knee reveals incision to be healed nice. Fairly minimal swelling. Range of motion 0-125. Good straight leg raise. No instability. X-RAYS: X-ray of the right knee is reviewed. It shows advanced medial compartment arthritis. She has got complete loss of medial joint space on the 40-degree flexion films. She has got small osteophytes medially. The lateral compartment looks to be well preserved. On the stress test, medial side opens up well and the lateral side is preserved. ASSESSMENT: A 68-year-old female now about 4 months out from a left partial knee replacement, with right knee medial compartment degenerative joint disease. She has failed conservative treatment. She would like to have her right knee fixed. Very happy with her left knee. PLAN: We will take her to the operating room and do a right partial knee replacement. If we get in there and it is too bad, we will do a full knee replacement. The risks and benefits of right partial knee replacement were explained to the patient including but not limited to DVT, PE, , infection, neurological injury, vascular injury, bleeding problem, pain, limited range of motion, stiffness, failure to her relieve symptoms, incomplete relief of symptoms, need for further surgery in the future, dislocation, persistent pain, etc. The patient understands and desires to proceed. Informed consent was obtained. She knows to hold her Xarelto 3 days preop. We will start her on prophylactic dose 24 hours postop and then discharge her in a day or 2 on the therapeutic dose. She knows to take the metoprolol on the morning of surgery and hold the lisinopril. She is planning to be discharged home using [facility] home health program.
[~2019-04-28 06:13] MED LIST: ACETAMINOPHEN 500 MG TAB PO SCH; BUPIVACAINE LIPOSOME/PF 266 MG, BUPIVACAINE/EPINEPHRINE 50 ML, SODIUM CHLORIDE 0.9% 30 ... INFIL SCH; CEFAZOLIN 2000MG 2,000 MG/15 ML SYR IV SCH; FAMOTIDINE 20 MG TAB PO SCH; GABAPENTIN 300 MG CAP PO SCH; LR 500ML BOLUS, THEN 15ML/HR IV SCH; LR 60ML/HR IV SCH; METOCLOPRAMIDE HCL 10 MG TABLET PO SCH
[2019-04-28] MEDS ORDERED: BUPIVACAINE 0.5 % 5 MG/1 ML PF 10ML VIAL ONE (06:28)
[2019-04-28] MEDS ORDERED: ROPIVACAINE 0.5% 5 MG/ML 30 ML VIAL ONE (06:29)
[2019-04-28] MEDS ORDERED: EPINEPHrine INJ 1 MG/ML AMP ONE (06:29)
[2019-04-28] MEDS ORDERED: TRANEXAMIC ACID 1,000 MG **IV Intra-op IV SCH (06:30)
--- NOTE | 2019-04-28 06:55 | History & Physical Bridge Note ---
Date of Service April 28, 2019 History & Physical Bridge Note I have examined the patient, reviewed the History & Physical and in the interval since the performance of the History & Physical I have noted the following changes of clinical significance: no changes noted
[2019-04-28] MEDS ORDERED: fentaNYL citrate 100 MCG/2 ML VIAL ONE (07:12)
[2019-04-28] MEDS ORDERED: MIDAZOLAM HCL 1 MG/ML 2ML VIAL ONE ×2 (07:12→07:40)
[2019-04-28] MEDS ORDERED: BUPIVACAINE/EPINEPHRINE 0.25% 1:200,000 30 ML VIAL ONE (08:45)
[2019-04-28] MEDS ORDERED: BACITRACIN INJ 50,000 UNIT VIAL ONE (08:45)
[2019-04-28] MEDS ORDERED: SODIUM CHLORIDE 0.9% PF 50 ML VIAL ONE (08:45)
[2019-04-28] MEDS ORDERED: BUPIVACAINE LIPOSOME 1.3% 266 MG/20 ML VIAL ONE (08:45)
[2019-04-28] MEDS ORDERED: PROPOFOL IV EMULSION 10 MG/ML 20 ML VIAL IV ONE (09:18)
[2019-04-28] MEDS ORDERED: KETAMINE HCL INJ 50 MG/ML 10 ML VIAL ONE ×2 (10:33→10:34)
--- NOTE | 2019-04-28 11:06 | Post Operative Brief Note ---
PG Immediate Post Op with CF Date of Surgery April 28, 2019 Pre & Post Diagnosis Operation Date: 04/28/19 08:50 Pre-Op Diagnosis: Right Knee Advanced Medial Compartment Arthritis Post-Op Diagnosis: Right Knee Advanced Medial Compartment Arthritis Procedure Operation Date: 04/28/19 08:50 Actual Procedures p Right Knee Unicompartmental Arthroplasty(Right) - Chadd Manzo MD Surgeon Chadd Manzo MD Assistant Professor Of Drama Marsha, PAC Estimated Blood Loss 20 Findings Consistent with Post-Op Diagnosis Fluids 800 cc Specimens Specimen Description: A. Right Knee Bone and Tissue Drains Oakley Catheter (A 16 Fijian oakley catheter was inserted by SCHUYLER Gilmore, without difficulty, clear yellow urine obtained, output to be monitored by Anesthesia.) Anesthesia Type Spinal MAC Complications none Disposition Accompanied Patient To Recovery: No Disposition: Recovery Room
--- NOTE | 2019-04-28 11:29 | XRay Report ---
XR knee RT 2V routine CLINICAL HISTORY: Surgical Post Op COMPARISON: 04/06/2019 DISCUSSION: There are postsurgical changes of a medial joint compartment arthroplasty. No acute fract ures are visualized. There is air within the soft tissues consistent with recent surgery. There are o verlying skin j luis. IMPRESSION: Postsurgical changes of a medial joint compartment arthroplasty. Electronically signed by: Bolivar Kent M.D. 04/28/2019 11:28 AM
[2019-04-28] MEDS ORDERED: HYDROmorphone INJ 1 MG/ML SYRINGE IV PRN (11:41)
[2019-04-28] MEDS ORDERED: ONDANSETRON INJ 2 MG/ML 2 ML VIAL IV PRN ×2 (11:41→12:24)
[2019-04-28] MEDS ORDERED: ePHEDrine sulfate 50 MG/ML AMP IV PRN (11:41)
[2019-04-28] MEDS ORDERED: LABETALOL HCL IV 5 MG/ML 20ML IV PRN (11:41)
[2019-04-28] MEDS ORDERED: ATROPINE SULFATE 0.1 MG/ML 10ML SYR IV PRN (11:41)
[2019-04-28] MEDS ORDERED: PHENYLEPHRINE 100MCG/ML 5ML SYR IV PRN (11:41)
[2019-04-28] MEDS ORDERED: fentaNYL citrate 100 MCG/2 ML VIAL IV PRN (11:41)
--- NOTE | 2019-04-28 11:42 | Anesthesiology Progress Note ---
Date of Service April 28, 2019 Anesthesia Post Procedure Vital Signs Vital Signs: Temp Pulse Pulse Resp BP Pulse Ox 04/28/19 11:40 36.5 C 66 10 L 146/80 H 97 04/28/19 11:30 36.4 C L 72 15 136/81 100 04/28/19 11:20 36.4 C L 71 15 133/78 100 04/28/19 11:10 36.4 C L 77 18 125/75 96 04/28/19 06:43 36.9 C 72 20 144/82 H 94 Transfer of Care Handoff Completed per policy Notes Mental Status: alert / awake / arousable Patient Amnestic to Procedure: Yes Nausea / Vomiting: adequately controlled Pain: adequately controlled Airway Patency, RR, SpO2: stable & adequate BP & HR: stable & adequate Hydration State: stable & adequate Neuraxial Anesthesia: was administered and sensory block is resolving Anesthetic Complications: no major complications apparent and Pt Satisfied with anesthetic care
[2019-04-28] MEDS ORDERED: NALOXONE HCL 0.4 MG/1 ML VIAL/CARP IV PRN (12:24)
[2019-04-28] MEDS ORDERED: MAGNESIUM HYDROXIDE SUSP 30 ML UDC PO PRN (12:24)
[2019-04-28] MEDS ORDERED: ALUMINUM/MAGNESIUM SUSP 30 ML UDC PO PRN (12:24)
[2019-04-28] MEDS ORDERED: METOCLOPRAMIDE HCL INJ 5 MG/ML 2 ML VIAL IV PRN (12:24)
[2019-04-28] MEDS ORDERED: bisacodyL 10 MG SUPP PR PRN (12:24)
[2019-04-28] MEDS ORDERED: METHOCARBAMOL 500 MG TABLET PO PRN (12:24)
[2019-04-28] MEDS ORDERED: PANTOprazole 40 MG TAB PO PRN (12:24)
[2019-04-28] MEDS ORDERED: HYDROmorphone INJ 0.5 MG/0.5 ML SYR IV PRN (12:24)
[2019-04-28] MEDS ORDERED: SODIUM CHLORIDE 0.9% 1000ML 1,000 ML IV SCH (12:24)
[2019-04-28] MEDS: KETOROLAC TROMETHAMINE 15 MG/ML VIAL IV SCH ×2 (12:56→19:30)
[2019-04-28] MEDS: ACETAMINOPHEN 500 MG TAB PO SCH ×2 (12:56→21:39)
[2019-04-28] MEDS: GABAPENTIN 300 MG CAP PO SCH ×2 (12:56→21:39)
[2019-04-28] MEDS ORDERED: GLUCAGON FOR INJ 1 MG VIAL SQ PRN (13:46)
[2019-04-28] MEDS ORDERED: CARBOHYDRATES FOR HYPOGLYCEMIA PO PRN (13:46)
[2019-04-28] MEDS ORDERED: GLUCOSE 40% GEL 15 GM TUBE PO PRN (13:46)
[2019-04-28] MEDS ORDERED: DEXTROSE 50% 50 ML SYRINGE IV PRN (13:46)
[2019-04-28] MEDS ORDERED: GLUCOSE 10 TABS/TUBE PO PRN (13:46)
[2019-04-28] MEDS ORDERED: PHARMACY GLYCEMIC MGMT CONSULT PRN (13:54)
--- NOTE | 2019-04-28 14:03 | Progress Note ---
DATE: 04/28/2019 SUBJECTIVE: A 68-year-old female postop from a right partial knee replacement. She is doing pretty well. Really not having any significant pain yet, but just a little burning sensation. No chest pain or shortness of breath. Not feeling dizzy or lightheaded. OBJECTIVE: VITAL SIGNS: Temperature 36.4. Vital signs stable. GENERAL: Shows a pleasant, middle-aged female. She is lying in bed, looks quite comfortable. LUNGS: Clear to auscultation. HEART: Has regular rate and rhythm. ABDOMEN: Soft, nontender, nondistended. EXTREMITIES: Grossly neurovascularly intact except as follows: Examination of the right lower extremity reveals the leg to be well aligned. She can dorsiflex and plantarflex her foot appropriately. Calf is soft and supple. She is neurologically intact. X-RAYS: X-rays of the right knee from recovery room were reviewed. It shows a right partial knee replacement. Components looked to be in good position. No signs of problems. ASSESSMENT: A 68-year-old female with history of atrial fibrillation, postoperative from a right knee replacement, doing pretty well. Pain is controlled. She is neurologically intact. PLAN: 1. DVT prophylaxis including thigh-high TEDs, SCDs, and we will start her back on her Xarelto. We will start at a prophylactic dose 24 hours postop and then she can resume her normal dose on discharge. 2. PT/OT, weightbear as tolerated. Right total knee protocol. 3. Pain medicines, doing well with current pain regimen. 4. IV antibiotics x24 hours. 5. Disposition: Plan to discharge to home likely with some home health once medically stable and recovered.
--- NOTE | 2019-04-28 14:32 | Pharmacy Report ---
Glycemic Control Consultation - Date of Service April 28, 2019 - Scope Scope: Glycemic Pharmacist consulted by Dr Chadd Manzo on 04/28 for glycemic control and to write orders per [facility] inpatient glycemic control protocol - Objective Weight: 102 kg Accuchecks BSG (last 24hrs): 04/28/19 04/28/19 04/28/19 06:42 11:14 12:24 POC Glucose 118 H 136 H 120 H - Recent Pertinent Medications Outpatient Anti-diabetic Regimen: * "Diet Controlled" * A1c = 7.5 % 04/28/2019 Risk Factors for Insulin Resistance: * Steroids: * Infection: * Pressors: * IVF: * Recent Surgery: POD #0 * Diet: T2DM * Mechanical Ventilation: - Assessment & Plan Assessment & Plan: ASSESSMENT: * Ms. Parada is a 68 year old female admitted post right knee unicompartmental arthroplasty, POD #0 * She is currently not taking any medications for diabetes control but managing with diet, A1c 7.5% * Reviewed OR medications, patient did not receive any steroids to contribute to poor glycemic controls and BSGs 118-136 this morning. * Will initiate bolus orders for meal coverage, conservatively with CF weight based stress of 2 and slightly looser carb ratio of 12- may need adjusted based on dinner BSG (patient did not receive carb coverage for lunch) * Basal scale will be ordered for this evening PLAN FOR INPATIENT GLYCEMIC CONTROL: * Basal insulin * Lantus hold for BSG <140 * 10 units BSG 140-180 * 18 units BSG >180 * Bolus insulin * NovoLog per scale ACHS or Q6hrs while NPO * Goal Range: Low 110 mg/dL - High 140 mg/dL * Correction Factor: 25 mg/dL/unit * Nutritional / Prandial insulin per carb ratio of 1 unit per 12 grams CHO consumed * Please note that the plan above was derived based on current level of insulin resistance and hospital stress. These recommendations are appropriate for inpatient admission only. Plan of care upon discharge will need to be reassessed to avoid potential outpatient hypo/hyperglycemia. Thank you.
--- NOTE | 2019-04-28 16:20 | Operative Report ---
DATE OF OPERATION: 04/28/2019 SURGEON: Chadd Manzo MD. CHEMISTRY LABORATORY TECHNICIAN: SCHUYLER Erazo. PREOPERATIVE DIAGNOSIS: Right knee medial compartment degenerative joint disease. POSTOPERATIVE DIAGNOSIS: Right knee medial compartment degenerative joint disease. PROCEDURE PERFORMED: Right Biomet Todd mobile-bearing partial knee replacement. COMPLICATIONS: None. ESTIMATED BLOOD LOSS: 20 mL. FLUID REPLACEMENT: 800 mL crystalloid fluid replacement. ANESTHESIA: Spinal with adductor canal block. DRAINS: None. SPECIMENS: Right knee sent for pathology. TOURNIQUET TIME: 71 minutes at 300 mmHg. OPERATIVE INDICATIONS: The patient is a 68-year-old female who has had a long history of bilateral knee pain and discomfort. She has been through extensive conservative treatment. She underwent a left partial knee replacement back in November of this year and has done excellent from this. She continued to be limited by right knee pain. X-rays show medial compartment arthritis. She elected to proceed with partial knee replacement. OPERATIVE FINDINGS: Revealed advanced right knee medial compartment DJD. She had some eburnation of her medial femoral condyle and medial tibial plateau. The lateral compartment was well preserved. She had some very mild grade 1-2 changes of the patellofemoral joint. OPERATIVE IMPLANTS: Consisted of: 1. Biomet Todd size medium femoral component. 2. Biomet right medial size A tibial tray. 3. A 4 mm mobile-bearing insert. OPERATIVE PROCEDURE: The patient was taken to the operating room, identified and placed on the operating table in supine position. All contact areas were appropriately padded. IV antibiotics provided by anesthesia team. A spinal anesthetic and adductor canal block had been placed in the holding area. A Hutchison catheter was placed in sterile fashion. Right thigh tourniquet was then placed and the right lower extremity was then prepped and draped in usual sterile fashion. The right leg was elevated and exsanguinated with an Esmarch and tourniquet was placed at 300 mmHg. An anterior approach of the right knee was then performed through a longitudinal incision beginning at the superior pole of the patella and extending just medial to the tibial tubercle. Sharp dissection was carried through subcutaneous tissue down to the level of the extensor mechanism. A medial parapatellar arthrotomy incision was made. The fat pad was resected. Some slight subperiosteal dissection was carried out medially, taking great care to protect the medial collateral ligament. I then examined the knee. The ACL was intact. I examined the lateral compartment, which was well preserved. She has very mild patellofemoral changes and we elected to proceed with partial knee replacement. The femur was sized to a size medium. The medium spoon was placed. The external tibial alignment jig was placed. Proximal tibial cut was made. The tibia was sized to a size A. Attention was then drawn to the femur. The distal femur was opened with the drill followed by the awl. The intramedullary guide was placed. A medium femoral template was then placed and fixed to the intramedullary leeann and the holes were drilled for the femoral component. Posterior cutting guide was placed and the posterior cut was made. The knee was flexed. The remnant of the medial meniscus was excised. The 0 spigot was then used to mill the distal femur. I then trialed the knee and the 4 feeler gauge fit in flexion and the 2 in extension. Therefore, we removed all implants and placed the 2 spigot. I reamed the femur further. I then trialed the knee again and the 4 feeler gauge fit appropriately in flexion and extension. It was a little bit more loose in extension than flexion. I felt the 5 was too tight. We elected to use the 4. All trial implants were removed. A cement drill was used to create holes in the distal femur for the cement. The posterior osteophyte cutting guide was placed and the posterior osteophyte was removed. The anterior milling device was used to create the defect for the anterior aspect of the femoral component. The tibial tray was pinned in place and the toothbrush blade saw blade was used to create the hole for the keel component. I then irrigated the wound extensively. We then trialed the knee one more time and the 4 insert fit appropriately. It tracked nicely. Soft tissue seemed to be tensioned pretty well. Maybe just a little bit more lax in extension. I elected to accept this. All trial implants were removed. The wound was irrigated with copious amounts of pulsatile lavage solution. A single batch of Palacos G cement was mixed. A [employer] right medial A tray was cemented in place. All extraneous cement was removed. A medium femoral component was placed. A 4 feeler gauge was then placed and the knee was brought out into about 30 degrees short of full extension until cement hardened. Once the cement hardened, a final cement check was then performed. We trialed the knee one more time and the 4 insert fit appropriately. The permanent 4 insert was placed. The knee was irrigated extensively. I did inject locally with 100 mL of 0.5% Marcaine with epinephrine. The tourniquet was then let down for a tourniquet time of 71 minutes. Hemostasis was assured with the use of electrocautery. The wound was once again irrigated. Extensor mechanism was then closed with #1 Vicryl suture in [id number] fashion. The extensor mechanism was checked and found to be intact. The subcutaneous tissue was then closed with 2 Dexon suture in a buried interrupted fashion. Skin was closed with skin j luis. Leg was then cleaned and dried and a sterile dressing of Xeroform, 4 x 4, sterile cast padding and Sriram bandage were applied. The patient was then transferred to the recovery room in stable condition. The patient tolerated the procedure well with no complications. All needle and sponge counts were correct at the end of the operation. I attest to the content of the Intraoperative Record and any orders documented therein. Any exception s are noted below.
[2019-04-28] MEDS: ASCORBIC ACID 500 MG TAB PO SCH (17:05)
[2019-04-28] MEDS: CEFAZOLIN 2000MG 2,000 MG/15 ML SYR IV SCH (17:06)
[2019-04-28] MEDS: INSULIN ASPART 100 UNITS/ML 3 ML PEN SC SCH (18:17)
[2019-04-28] MEDS ORDERED: INSULIN GLARGINE SOLOSTAR 100 UNITS/ML 3 ML PEN SC ONE (21:00)
[2019-04-28] MEDS ORDERED: lisinopriL 20 MG TAB PO SCH (21:00)
[2019-04-28] MEDS ORDERED: SENNA 8.6 MG TAB PO SCH (21:00)
[2019-04-28] MEDS ORDERED: METOPROLOL SUCC 50MG EXT REL TAB PO SCH (21:00)
[2019-04-28] MEDS: DOCUSATE SODIUM 100 MG CAP PO SCH (21:38)
[2019-04-29] MEDS: TRAMADOL HCL 50 MG TABLET PO PRN ×2 (00:19→11:42)
[2019-04-29] MEDS: CEFAZOLIN 2000MG 2,000 MG/15 ML SYR IV SCH (02:20)
[2019-04-29] MEDS: KETOROLAC TROMETHAMINE 15 MG/ML VIAL IV SCH ×3 (02:21→13:18)
[2019-04-29] MEDS: ACETAMINOPHEN 500 MG TAB PO SCH ×2 (05:58→13:18)
[2019-04-29] MEDS: ASCORBIC ACID 500 MG TAB PO SCH (07:33)
[2019-04-29] MEDS: DOCUSATE SODIUM 100 MG CAP PO SCH (08:34)
[2019-04-29] MEDS: GABAPENTIN 300 MG CAP PO SCH ×2 (08:35→13:18)
[2019-04-29] MEDS: INSULIN ASPART 100 UNITS/ML 3 ML PEN SC SCH ×2 (08:52→12:20)
[2019-04-29] MEDS ORDERED: MULTIVITAMIN TAB PO SCH (09:00)
[2019-04-29] MEDS ORDERED: ATORVASTATIN 40 MG TAB PO SCH (09:00)
[2019-04-29] MEDS ORDERED: CALCIUM 600MG + VIT D 400 IU TAB PO SCH (09:00)
[2019-04-29] MEDS ORDERED: LISINOPRIL/HCTZ 20/12.5MG 1 TAB TAB PO SCH (09:00)
[2019-04-29] MEDS ORDERED: METOPROLOL SUCC 50MG EXT REL TAB PO SCH (09:00)
[2019-04-29] MEDS ORDERED: LORATADINE 10 MG TAB PO SCH (09:00)
--- NOTE | 2019-04-29 10:29 | Pharmacy Report ---
Pharmacy Glycemic Sign Off Nt - Date of Service April 29, 2019 - Assessment & Plan ASSESSMENT: * Pharmacy was consulted by Dr Manzo on 04/28/19 for glycemic control and to write orders per [facility] inpatient glycemic control protocol. * Major changes made by pharmacy to antidiabetic regimen include: * adding weight based SQ basal bolus insulin dosing regimen post op to maintain BSGs <200 mg/dl * Patient has been receiving/requiring 0 units of insulin per day for adequate glycemic control * BSGs ranging 103 - 136 mg/dl * No insulin required to achieve this level of control * Do not anticipate further changes in patient status that would quickly deteriorate glycemic control (i.e. patient to be NPO for upcoming procedure, steroids tapering, starting tube feedings, etc). * Please see recommendations for outpatient antidiabetic regimen below. PLAN FOR INPATIENT GLYCEMIC CONTROL: No changes needed to current regimen. * No basal insulin needed * Continue NovoLog per scale ACHS/Q6hrs while NPO * Goal range = 110 140 mg/dl * CF = 25 mg/dl/unit * CR = 1 unit for ever -- g CHO consumed {no CHO coverage needed} * Pharmacy is signing off of glycemic consult and will no longer be making adjustments to inpatient regimen. Please feel free to re-consult if needed. Thank you. DISCHARGE RECOMMENDATIONS: * A1c 7.5 % on 03/19/19 * May consider the addition of metformin - patient can d/w PCP
[2019-04-29] MEDS ORDERED: RIVAROXABAN 10 MG TABLET PO SCH (12:00)
--- NOTE | 2019-04-29 14:15 | Progress Note ---
DATE: 04/29/2019 SUBJECTIVE: A 68-year-old female postop day 1 from a right partial knee replacement. She is doing well. Pain is controlled. Therapy went well. No chest pain or shortness of breath. Not feeling dizzy or lightheaded. OBJECTIVE: VITAL SIGNS: Temperature 36.6. Vital signs stable. GENERAL: Shows a pleasant, middle-aged female. She is sitting up in bed, looks quite comfortable. EXTREMITIES: Examination of the right leg reveals the leg to be well aligned. Dressing is clean, dry and intact. She can dorsiflex and plantarflex her foot appropriately. She can do a good straight leg raise. LABORATORY DATA: None. ASSESSMENT: A 68-year-old female postop day 1 from right partial knee replacement, doing well. Pain is controlled. She is neurologically intact. PLAN: 1. DVT prophylaxis including thigh-high TEDs, SCDs, and will put her back on her Xarelto. She had a prophylactic dose today and resume therapeutic doses tomorrow. 2. PT/OT. Weight bear as tolerated. Right total knee protocol. 3. Pain control, doing pretty well with current pain regimen. 4. Disposition: Plan to discharge to home with home health later today.
--- NOTE | 2019-05-05 11:42 | Discharge Summary ---
ADMITTING PHYSICIAN AND SURGEON: Dr. Chadd Manzo. ADMITTING DIAGNOSIS: Right knee degenerative joint disease. SURGERY PERFORMED: Right partial knee replacement. SECONDARY DIAGNOSES: Atrial fibrillation, hypertension, elevated cholesterol, diabetes, gastroesophageal reflux disease, obesity. CONSULTS: None obtained. HISTORY AND PHYSICAL EXAMINATION: Well documented in the patient's chart. HOSPITAL COURSE: The patient was admitted on 04/28/2019 underwent partial knee replacement, tolerated the procedure well. There were no complications. She was transferred to the PACU postoperatively and later to the orthopedic floor for further care. She was given Ancef for antibiotic prophylaxis, KEVIN stockings, SCDs and Xarelto for DVT prophylaxis. Her vital signs were monitored during her hospital stay and remained stable. She did not require any blood transfusions. There were no complications. By postoperative day 1, she was tolerating a diabetic diet. Pain was controlled with oral pain medicine. She was participating in physical therapy. Postop day 1, she was discharged home, set up with home health services. She was given printed discharge instructions as well as new prescriptions for tramadol and extra strength Tylenol. Continue her home medicines including Xarelto. She should stop [place]. Continue physical therapy, weightbearing as tolerated, KEVIN stockings. Follow up approximately 2 weeks postop or sooner if there are any problems or concerns.
== END 2019-04-29 15:30 | disposition home health service (06) | DRG 470 ==
LOC: ASU 06:13 → 3E 11:08